=== PATIENT | female | born 1970 | race Caucasian/White ===

== ENCOUNTER 2025-07-05 15:00 | Emergency (ER) | payer MEDICAID, OTHER ==
[~2025-07-05] VITALS: Ht 162.6 cm; Wt 92.6 kg
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
[2025-07-05] MEDS ORDERED: IBU600T PO (20:16)
[2025-07-05] MEDS ORDERED: CYCL-838 PO (20:16)
[2025-07-05 21:30] VITALS: BP 144/90; PULSE 56; RESP 13; TEMP 99; O2SAT 99
== END 2025-07-05 22:02 | disposition home or self-care (01) ==
LOC: ER 15:00
DX: S39.012A Strain of muscle, fascia and tendon of lower back, initial encounter (principal); S86.911A Strain of unspecified muscle(s) and tendon(s) at lower leg level, right leg, initial encounter; S56.911A Strain of unspecified muscles, fascia and tendons at forearm level, right arm, initial encounter; Z88.8 Allergy status to other drugs, medicaments and biological substances; V49.40XA Driver injured in collision with unspecified motor vehicles in traffic accident, initial encounter; Y93.89 Activity, other specified; Y92.488 Other paved roadways as the place of occurrence of the external cause; Y99.8 Other external cause status
CPT/HCPCS: 72040; 72070; 73080; 73562